=== PATIENT | female | born 1975 | race African-American/Black ===

== ENCOUNTER 2018-07-27 09:10 | Emergency (ER) | payer SELFPAY ==
[~2018-07-27] VITALS: Wt 108.0 kg
[2018-07-27 09:12] VITALS: BP 158/80; PULSE 84; RESP 20
[2018-07-27] MEDS ORDERED: PROM6.2515 PO (09:30)
[2018-07-27] MEDS ORDERED: ALBU8.5H8 INH (09:30)
--- NOTE | 2018-07-27 10:18 | ERD ---
ER Documentation Chief Complaint Chief Complaint cough and mild wheezing for the past 2 days. no fever. no ear pain or st HPI 43-year-old female presenting with cough for the last 2 days. Patient states that she is taking albuterol and promethazine in the past with alleviation of symptoms. She states she ran out of her medication because she gave it to her son. Denies any fevers. Denies leg swelling. Denies pleuritic chest pain or hemoptysis. Medical history is asthma. NKDA. Surgical history denies. ROS All systems reviewed and are negative except as per history of present illness. Medications Home Meds Active Scripts Albuterol Sulfate* (Proair HFA*) 8.5 Gm Hfa.aer.ad, 2 PUFF INH Q4, #1 INHALER Prov:EMMA NEVES PA-C 07/27/18 Promethazine Hcl* (Promethazine Hcl* Syrup) 6.25 Mg/5 Ml Syrup, 6.25 MG PO Q6H PRN for COUGH, #100 ML Prov:EMMA NEVES PA-C 07/27/18 Physical Exam Vitals Vital Signs Date Temp Pulse Resp B/P (MAP) Pulse Ox O2 O2 Flow FiO2 Time Delivery Rate 07/27/18 98.0 84 20 158/80 98 09:12 (106) Physical Exam GENERAL: The patient is well-appearing, well-nourished, in no acute distress HEENT: Atraumatic. Conjunctivae are pink. Pupils equal, round, and reactive to light. There is no scleral icterus. Tympanic membranes clear bilaterally. Oropharynx clear. NECK: C-spine is soft and supple. There is no meningismus. There is no cervical lymphadenopathy. CHEST: Clear to auscultation bilaterally. There are no rales, wheezes or rhonchi. HEART: Regular rate and rhythm. No murmurs, clicks, rubs or gallops. Procedures/MDM MDM: 43-year-old female presenting with cough. I have low suspicion for pneumonia. I have low suspicion for respiratory distress or hypoxia. Patient is discharged with supportive medications. Patient is told if symptoms change or worsen to return immediately to the ER. All questions answered at discharge Departure Diagnosis: Primary Impression: Cough Condition: Stable Patient Instructions: Cough, Chronic, Uncertain Cause, (Adult) Referrals: COMM[facility]ITY [facility] YOU HAVE RECEIVED A MEDICAL SCREENING EXAM AND THE RESULTS INDICATE THAT YOU DO NOT HAVE A CONDITION THAT REQUIRES URGENT TREATMENT IN THE EMERGENCY DEPARTMENT. FURTHER EVALUATION AND TREATMENT OF YOUR CONDITION CAN WAIT UNTIL YOU ARE SEEN IN YOUR DOCTORS OFFICE WITHIN THE NEXT 1-2 DAYS. IT IS YOUR RESPONSIBILITY TO MAKE AN APPOINTMENT FOR FOLOW-UP CARE. IF YOU HAVE A PRIMARY DOCTOR --you should call your primary doctor and schedule an appointment IF YOU DO NOT HAVE A PRIMARY DOCTOR YOU CAN CALL OUR PHYSICIAN REFERRAL HOTLINE AT IF YOU CAN NOT AFFORD TO SEE A PHYSICIAN YOU CAN CHOSE FROM THE FOLLOWING [facility] [address] [facility]. [facility] [address] [facility] [facility] [address] [facility] [facility] [address] [facility]. [facility] [address] [facility]. [facility]. [address] Additional Instructions: FOLLOW UP WITH YOUR PRIMARY CARE PHYSICIAN TOMORROW.Return to this facility if you are not improving as expected. EMMA NEVES PA-C Jul 27, 2018 10:18
== END 2018-07-27 09:59 | disposition home or self-care (01) ==
LOC: FTE 09:10
DX: R05 Cough (principal); J45.901 Unspecified asthma with (acute) exacerbation
CPT/HCPCS: 99283